=== PATIENT | female | born 1975 | race Two or more races ===

== ENCOUNTER 2017-04-15 08:19 | Emergency (ER) | payer OTHER ==
[~2017-04-15] VITALS: Ht 160 cm; Wt 74.2 kg
[2017-04-15] MEDS ORDERED: ONDANSETRON ODT 4 MG PO ONE (09:00)
[2017-04-15] MEDS ORDERED: FAMOTIDINE 20 MG TABLET PO ONE (09:00)
[2017-04-15] MEDS ORDERED: LORazepam 1MG TABLET PO ONE (09:00)
[2017-04-15] MEDS ORDERED: FAMOTIDINE 20 MG TABLET ONE (09:08)
[2017-04-15] MEDS ORDERED: ONDANSETRON ODT 4 MG ONE (09:08)
[2017-04-15] MEDS ORDERED: LORazepam 1MG TABLET ONE (09:08)
[2017-04-15 09:22] LABS: HEMATOCRIT 40.6 % (34.6-47.8); HEMOGLOBIN 13.5 g/dL (11.7-16.4); WHITE BLOOD COUNT 9.8 x10^3/uL (3.4-10)
[2017-04-15 09:24] LABS: ASPARTATE AMINO TRANSFERASE 13 U/L (15-37); BLOOD UREA NITROGEN 9 mg/dL (7-18)
[2017-04-15 10:09] LABS: HCG UR OBC PASS
[2017-04-15 10:21] VITALS: BP 105/71
== END 2017-04-15 11:20 | disposition home or self-care (01) ==
LOC: ED 10:34
DX: F41.1 Generalized anxiety disorder (principal); N30.00 Acute cystitis without hematuria
CPT/HCPCS: 36415; 76700; 80053; 81001; 81025; 83690; 85025; 87086; 93005; 99285; Q0162